=== PATIENT | female | born 1970 | race Caucasian/White ===

== ENCOUNTER 2019-10-25 10:40 | Emergency (ER) | payer MEDICAID ==
[~2019-10-25] VITALS: Ht 144.8 cm; Wt 58.5 kg
[2019-10-25 10:48] VITALS: BP 124/86
--- NOTE | 2019-10-25 10:59 | NUR ---
PT AMB TO RESTROOM
--- NOTE | 2019-10-25 11:04 | NUR ---
49/F C/O C/O DIZZINESS, VERTIGO & WEAKNESS TO BL LEGS WHEN GETTING OUT OF BED TODAY. REPORTS SENSATION OF ROOM SPINNING. PT WAS ABLE TO AMB TO ER RESTROOM WITH STEADY GAIT. DENIES N/V/D. DENIES WEAKNESS IN THE LEG NOW, BUT STATES FATIGUE. STILL REPORTING VERTIGO NOW. BLOOD SUGAR 104 AT THIS TIME. VSS. MED HX:DENIES
--- NOTE | 2019-10-25 11:19 | NUR ---
DR. FU EVALUATING PT AT BEDSIDE
[2019-10-25] MEDS ORDERED: NACL 0.9% 1,000 ML IV ONE (11:25)
--- NOTE | 2019-10-25 11:34 | NUR ---
PATCHER HELPER AT BEDSIDE FOR BLOOD DRAW
--- NOTE | 2019-10-25 11:37 | NUR ---
EMT AT BEDSIDE FOR EKG
[2019-10-25 11:43] LABS: BASOPHILS % (AUTO) 0.8 % (0.0-2.0); EOSINOPHILS # (AUTO) 0.1 K/uL (0-0.4); EOSINOPHILS % (AUTO) 2.8 % (0.0-4.0); HEMOGLOBIN 13.2 g/dL (12.0-16.0); LYMPHOCYTES # (AUTO) 1.2 K/uL (2.5-16.5); MEAN CORPUSCULAR HEMOGLOBIN 30 pg (27-31); MEAN CORPUSCULAR HGB CONC 34 g/dL (33-37); MEAN CORPUSCULAR VOLUME 87.6 fL (80-94); MONOCYTES # (AUTO) 0.3 K/uL (0.8-1.0); MONOCYTES % (AUTO) 6.5 % (1.7-9.3); NEUTROPHILS # (AUTO) 3.4 K/uL (1.8-7.7); NEUTROPHILS % (AUTO) 66.9 % (42.2-75.2); PLATELET COUNT (AUTO) 305 K/uL (140-450); RED BLOOD CELL COUNT(AUTO) 4.45 MIL/uL (4.20-5.40); RED CELL DISTRIBUTION WIDTH 12.5 % (11.6-13.7); WHITE BLOOD COUNT (AUTO) 5.1 K/uL (4.8-10.8)
[2019-10-25 12:00] LABS: ALBUMIN 4.2 g/dL (3.4-5.0); CARBON DIOXIDE 30.2 mmol/L (21-32); CREATININE 0.8 mg/dL (0.6-1.3); POTASSIUM 4.2 mmol/L (3.5-5.1); TOTAL BILIRUBIN 0.4 mg/dL (0.0-1.0)
--- NOTE | 2019-10-25 12:29 | NUR ---
DR. FU SPEAKING W/ PT AT BEDSIDE
[2019-10-25 12:38] VITALS: BP 122/76
--- NOTE | 2019-10-25 12:38 | NUR ---
Patient discharged with v/s stable. Written and verbal after care instructions given and explained. Patient verbalized understanding. Ambulatory with steady gait. All questions addressed prior to discharge. Advised to follow up with PMD. WILL BE DRIVEN HOME BY SON.
== END 2019-10-25 12:38 | disposition home or self-care (01) ==
LOC: MED 10:40
DX: F41.9 Anxiety disorder, unspecified (principal); R03.0 Elevated blood-pressure reading, without diagnosis of hypertension; R42 Dizziness and giddiness
CPT/HCPCS: 36415; 80053; 81002; 81025; 82948; 85025; 93005; 96360; 99284; J7030